=== PATIENT | male | born 1955 | race Caucasian/White ===

== ENCOUNTER → 2020-11-28 | Outpatient (CLI) | payer BC ==
[~2020-11-28] MED LIST: CEFUROXIME500 MG PO; CORDARONE 200M200 MG PO; COREG 3.125M3.125 MG PO; DECADRON6 MG PO; PROVENTIL HFA6.7 GM INH
== END ==
LOC: HEART 5 08:23
DX: Z51.81 Encounter for therapeutic drug level monitoring (principal); Z79.899 Other long term (current) drug therapy
CPT/HCPCS: 94010; 94729